=== PATIENT | female | born 2000 | race African-American/Black ===

== ENCOUNTER 2018-08-01 15:04 | Emergency (ER) | payer OTHER ==
[~2018-08-01] VITALS: Ht 167.6 cm; Wt 145.1 kg
[2018-08-01] MEDS ORDERED: ZITHROMAX200 MG (15:14)
== END 2018-08-01 17:02 | disposition home or self-care (01) ==
LOC: ER 15:04
DX: J06.9 Acute upper respiratory infection, unspecified (principal)